=== PATIENT | female | born 1980 | race Caucasian/White ===

== ENCOUNTER 2019-02-19 10:54 | Emergency (ER) | payer OTHER ==
[2019-02-19] MEDS ORDERED: NA CHLORIDE 0.9% 1,000 ML ONE (12:18)
[2019-02-19] MEDS ORDERED: FOLIC ACID 5 MG/ML VIAL ONE (12:19)
--- NOTE | 2019-02-19 12:28 | RAD REPORT ---
EXAM DESCRIPTION: CT - Head Brain Wo Cont - 02/19/2019 12:17 pm CLINICAL HISTORY: Transient alteration of awareness COMPARISON: May 2016 TECHNIQUE: Axial 5 mm thick images of the head were obtained without IV contrast. All CT scans are performed using dose optimization technique as appropriate and may include automated exposure control or mA/KV adjustment according to patient size. FINDINGS: No intracranial hemorrhage, mass, edema or shift of mid-line structures. No acute infarcti on changes seen. No abnormal extra-axial fluid collections. Ventricles are normal. Mastoid air cells and visualized portions of the paranasal sinuses are clear. No acute bony findings. IMPRESSION: Negative non-contrast CT head examination for acute finding. No significant change from comparison
[2019-02-19 12:47] LABS: Absolute Lymphocytes (CBC) 2.2 K/uL (0.7-4.9); Absolute Monocytes 0.4 K/uL (0.1-1.3); Absolute Neutrophil 3.8 K/uL (1.8-8.0); Basophils % 0.5 % (0-1.3); Eosinophils % 0.7 % (0-4.4); Hematocrit 45.8 % (36.0-45.0); Lymphocytes % 33.6 % (15.3-44.8); Monocytes % 6.7 % (3.3-12.3); RBC Red Blood Cell Count 4.97 M/uL (3.86-4.86)
[2019-02-19 12:47] LABS: Urine Blood TRACE (NEG); Urine Glucose NEGATIVE (NEG); Urine Protein NEGATIVE (NEG); Urine Specific Gravity 1.015 (1.005-1.030); Urine pH 5.5 (5.0-7.0)
[2019-02-19 13:07] LABS: ALT/SGPT 30 U/L (12-78); AST/SGOT 15 U/L (15-37); Albumin 3.9 g/dL (3.4-5.0); Alkaline Phosphatase 80 U/L (45-117); BUN Blood Urea Nitrogen 10 mg/dL (7-18); Bicarbonate 26 mmol/L (21-32); Bilirubin Direct 0.1 mg/dL (0-0.2); Bilirubin Total 0.6 mg/dL (0.2-1.0); C-Reactive Protein 4.56 mg/L (<3.00); Glucose Level 92 mg/dL (74-106); Magnesium 2.4 mg/dL (1.8-2.4); NT PRO-BNP 86 pg/mL (<125); Potassium 4.1 mmol/L (3.5-5.1); Protein, Total 7.6 g/dL (6.4-8.2); Sodium Level 141 mmol/L (136-145); Troponin (Emerg Dept Use Only) < 0.02 ng/mL (0.0-0.045)
--- NOTE | 2019-02-19 13:25 | RAD REPORT ---
EXAM DESCRIPTION: RAD - Chest Single View - 02/19/2019 12:51 pm CLINICAL HISTORY: Cough COMPARISON: December 2017 TECHNIQUE: AP portable chest image was obtained 1238 hours . FINDINGS: Lungs are clear. Heart and vasculature are normal. No measurable pleural effusion and no p neumothorax. No acute bony abnormality seen. No acute aortic findings suspected. IMPRESSION: No acute cardiopulmonary process. No significant interval change.
--- NOTE | 2019-02-19 13:35 | EDPHYS ---
Physician Documentation [facility] Name: Юлия White Age: 38 yrs Sex: Female : 1980 Arrival Date: 02/19/2019 Time: 10:55 Bed 14 Private MD: ED Physician Mike Pinon HPI: 02/19 11:58 This 38 yrs old Female presents to ER via Ambulatory with complaints of jovanni Numbness Of Face, Diarrhea. 11:58 The patient's problem is reported as paresthesias, in right side of face, forehead. jovanni Onset: The symptoms/episode began/occurred 1 day(s) ago. Context:. The symptoms are alleviated by nothing. The symptoms are aggravated by nothing. Severity of symptoms: At their worst the symptoms were mild. Patient's baseline: Neuro:. Historical: - Allergies: 11:05 CEPHALOSPORINS; la1 11:05 Phenergan; la1 - PMHx: 11:05 neuropathy; la1 - PSHx: 11:05 back sx; la1 - Immunization history:: Adult Immunizations up to date. - Social history:: Smoking status: Patient/guardian denies using tobacco. - Ebola Screening: : No symptoms or risks identified at this time. - Family history:: not pertinent. ROS: 11:58 Constitutional: Negative for fever, chills, and weight loss, Eyes: Negative for injury, jovanni pain, redness, and discharge, ENT: Negative for injury, pain, and discharge, Neck: Negative for injury, pain, and swelling, Cardiovascular: Negative for chest pain, palpitations, and edema, Respiratory: Negative for shortness of breath, cough, wheezing, and pleuritic chest pain, Abdomen/GI: Negative for abdominal pain, nausea, vomiting, diarrhea, and constipation, Back: Negative for injury and pain, : Negative for injury, bleeding, discharge, and swelling, MS/Extremity: Negative for injury and deformity, Skin: Negative for injury, rash, and discoloration, Psych: Negative for depression, anxiety, suicide ideation, homicidal ideation, and hallucinations, Allergy/Immunology: Negative for hives, rash, and allergies, Endocrine: Negative for neck swelling, polydipsia, polyuria, polyphagia, and marked weight changes, Hematologic/Lymphatic: Negative for swollen nodes, abnormal bleeding, and unusual bruising. 11:58 Neuro: Positive for numbness, of the forehead, right cheek, right ear, right anabaptist and right jaw. Exam: 11:58 Constitutional: This is a well developed, well nourished patient who is awake, alert, jovanni and in no acute distress. Head/Face: Normocephalic, atraumatic. Eyes: Pupils equal round and reactive to light, extra-ocular motions intact. Lids and lashes normal. Conjunctiva and sclera are non-icteric and not injected. Cornea within normal limits. Periorbital areas with no swelling, redness, or edema. ENT: Nares patent. No nasal discharge, no septal abnormalities noted. Tympanic membranes are normal and external auditory canals are clear. Oropharynx with no redness, swelling, or masses, exudates, or evidence of obstruction, uvula midline. Mucous membranes moist. Neck: Trachea midline, no thyromegaly or masses palpated, and no cervical lymphadenopathy. Supple, full range of motion without nuchal rigidity, or vertebral point tenderness. No Meningismus. Chest/axilla: Normal chest wall appearance and motion. Nontender with no deformity. No lesions are appreciated. Cardiovascular: Regular rate and rhythm with a normal S1 and S2. No gallops, murmurs, or rubs. Normal PMI, no JVD. No pulse deficits. Respiratory: Lungs have equal breath sounds bilaterally, clear to auscultation and percussion. No rales, rhonchi or wheezes noted. No increased work of breathing, no retractions or nasal flaring. Abdomen/GI: Soft, non-tender, with normal bowel sounds. No distension or tympany. No guarding or rebound. No evidence of tenderness throughout. Back: No spinal tenderness. No costovertebral tenderness. Full range of motion. Female : Normal external genitalia. 12:01 Radiologist reports: see report jovanni Vital Signs: 11:09 Pulse 84; Resp 18; Pulse Ox 99% on R/A; Weight 73.94 kg; Height 5 ft. 7 in. (170.18 cm);la1 11:10 BP 127 / 82; la1 12:00 BP 125 / 74; Pulse 75; Resp 18; Pulse Ox 99% on R/A; em 13:38 BP 114 / 73; Pulse 68; Resp 18; Pulse Ox 99% on R/A; Pain 5/10; em 14:21 BP 110 / 67; Pulse 68; Resp 18; Pulse Ox 98% on R/A; em 11:09 Body Mass Index 25.53 (73.94 kg, 170.18 cm) la1 NIH Stroke Scale Scores: 12:11 NIHSS Score: 0 [facility] MDM: 11:29 Patient medically screened. [facility] 12:01 Data reviewed: vital signs, nurses notes, lab test result(s), EKG, radiologic studies, [facility] CT scan, plain films, ultrasound. 02/19 11:58 Order name: Basic Metabolic Panel; Complete Time: 13:21 [facility] 02/19 11:58 Order name: CBC with Diff [facility] 02/19 11:58 Order name: LFT's; Complete Time: 13:21 [facility] 02/19 11:58 Order name: Magnesium; Complete Time: 13:21 [facility] 02/19 11:58 Order name: NT PRO-BNP; Complete Time: 13:21 [facility] 02/19 11:58 Order name: PT-INR [facility] 02/19 11:58 Order name: Troponin (emerg Dept Use Only); Complete Time: 13:21 [facility] 02/19 11:58 Order name: XRAY Chest (1 view) [facility] 02/19 11:58 Order name: US Carotid Artery Bilateral [facility] 02/19 11:58 Order name: Sed Rate [facility] 02/19 11:58 Order name: CRP; Complete Time: 13:21 [facility] 02/19 11:58 Order name: Urine Culture [facility] 02/19 12:25 Order name: Urine Dipstick--Ancillary (enter results) [facility] 02/19 12:25 Order name: Urine --Ancillary (enter results) [facility] 02/19 11:58 Order name: Cardiac monitoring; Complete Time: 12:45 [facility] 02/19 11:58 Order name: EKG - Nurse/Tech; Complete Time: 12:45 [facility] 02/19 11:58 Order name: IV Saline Lock; Complete Time: 12:46 [facility] 02/19 11:58 Order name: Labs collected and sent; Complete Time: 12:46 [facility] 02/19 11:58 Order name: O2 Per Protocol; Complete Time: 12:46 [facility] 02/19 11:58 Order name: O2 Sat Monitoring; Complete Time: 12:45 [facility] 02/19 11:58 Order name: CT Head Brain wo Cont; Complete Time: 13:21 [facility] 02/19 11:58 Order name: Urine Dipstick-Ancillary (obtain specimen); Complete Time: 12:04 [facility] Administered Medications: 12:45 Drug: NS 0.9% 1000 ml Route: IV; Rate: 1 bolus; Site: left antecubital; em 14:00 Follow up: IV Status: Completed infusion; IV Intake: 1000ml em 12:45 Drug: foLIC Acid 1 mg Route: IVPB; Site: left antecubital; hb 13:00 Follow up: Response: No adverse reaction em 13:46 Drug: Aspirin Chewable Tablet 324 mg Route: PO; em 14:00 Follow up: Response: No adverse reaction em 13:46 Drug: Tylenol 650 mg Route: PO; em 14:00 Follow up: Response: No adverse reaction em Disposition: 02/19/19 13:34 Discharged to Home. Impression: Weakness. - Condition is Stable. - Discharge Instructions: Transient Ischemic Attack, Weakness, Transient Ischemic Attack, Hpyo-kf-Mhma, Weakness, Qyvd-pz-Bixp, Aspirin and Your Heart. - Prescriptions for Folic Acid 1 mg Oral Tablet - take 1 tablet by ORAL route once daily; 30 tablet. - Medication Reconciliation Form, Thank You Letter, Antibiotic Education, Prescription Opioid Use form. - Follow up: Private Physician; When: 2 - 3 days; Reason: Recheck today's complaints, Continuance of care, Re-evaluation by your physician. Follow up: Arthur Conteh MD; When: 1 - 2 days; Reason: Recheck today's complaints, Continuance of care, Re-evaluation by your physician. - Problem is new. - Symptoms have improved. NIH Stroke Scale - NIH Stroke Score Date: 02/19/2019 Time: 12:11 Total Score = 0 1a. Level of Consciousness (LOC) - 0(Alert) 1b. Level of Consciousness (LOC) (Year \T\ Age) - 0(Both) 1c. LOC Commands (Open \T\ Closes Eyes/Compressor Operator Portable) - 0(Both) 2. Best Gaze (Lateral Gaze Paresis) - 0(Normal) 3. Visual Field Loss - 0(No visual loss) 4. Facial Palsy - 0(Normal) 5a. Left Arm: Motor (10-second hold) - 0(No drift) 5b. Right Arm: Motor (10-second hold) - 0(No drift) 6a. Left Leg: Motor (5-second hold - always test supine) - 0(No drift) 6b. Right Leg: Motor (5-second hold - always test supine) - 0(No drift) 7. Limb Ataxia (finger/nose \T\ heel/lubin - test with eyes open) - 0(Absent) 8. Sensory Loss (pinprick arms/legs/face) - 0(Normal) 9. Best Language: Aphasia (description/naming/reading) - 0(No aphasia) 10. Dysarthria (speech clarity - read or repeat words) - 0(Normal) 11. Extinction and Inattention (visual/tactile/auditory/spatial/personal) - 0(No abnormality) Initials: [facility] Signatures: Dispatcher [employer] EDMike Faustin MD MD cha Munoz, Edgar, RECREATION AIDE RECREATION AIDE em Shan Melendez, RN RN la1 Susan Marr RN RN hb Corrections: (The following items were deleted from the chart) 14:26 13:34 02/19/2019 13:34 Discharged to Home. Impression: Weakness. Condition is em Stable. Discharge Instructions: Transient Ischemic Attack, Weakness, Transient Ischemic Attack, Hrvt-ro-Wdby, Weakness, Kzju-gd-Vjyh, Aspirin and Your Heart. Prescriptions for Folic Acid 1 mg Oral Tablet - take 1 tablet by ORAL route once daily; 30 tablet. and Forms are Medication Reconciliation Form, Thank You Letter, Antibiotic Education, Prescription Opioid Use. Follow up: Private Physician; When: 2 - 3 days; Reason: Recheck today's complaints, Continuance of care, Re-evaluation by your physician. Follow up: Arthur Conteh; When: 1 - 2 days; Reason: Recheck today's complaints, Continuance of care, Re-evaluation by your physician. Problem is new. Symptoms have improved. jovanni
--- NOTE | 2019-02-19 13:35 | ER ---
Nurse's Notes [facility] Name: Юлия White Age: 38 yrs Sex: Female : 1980 Arrival Date: 02/19/2019 Time: 10:55 Bed 14 Private MD: Diagnosis: Weakness Presentation: 02/19 11:05 Presenting complaint: Patient states: At about 11 am on 02/18/2019 I having numbness and la1 tingling in my whole face and confusion that is intermittently worse. Transition of care: patient was not received from another setting of care. Onset of symptoms was February 19, 2019. Risk Assessment: Do you want to hurt yourself or someone else? Patient reports no desire to harm self or others. Initial Sepsis Screen: Does the patient meet any 2 criteria? No. Patient's initial sepsis screen is negative. Does the patient have a suspected source of infection? No. Patient's initial sepsis screen is negative. Care prior to arrival: None. 11:05 Method Of Arrival: Ambulatory la1 11:05 Acuity: [place] 3 la1 11:10 Note VAN negative. la1 Historical: - Allergies: 11:05 CEPHALOSPORINS; la1 11:05 Phenergan; la1 - PMHx: 11:05 neuropathy; la1 - PSHx: 11:05 back sx; la1 - Immunization history:: Adult Immunizations up to date. - Social history:: Smoking status: Patient/guardian denies using tobacco. - Ebola Screening: : No symptoms or risks identified at this time. - Family history:: not pertinent. Screenin:10 VAN Screening: Arm Drift: Patient shows no arm weakness. Visual Disturbance: No visual la1 disturbance noted. Aphasia: No aphasia noted. Neglect: No neglect noted. 12:00 Abuse screen: Denies threats or abuse. Nutritional screening: No deficits noted. em Tuberculosis screening: No symptoms or risk factors identified. Fall Risk None identified. Assessment: 12:00 General: Appears in no apparent distress. comfortable, Behavior is calm, cooperative, em Denies fever. Pain: Pain: Complains of pain in abdomen and head. Neuro: Level of Consciousness is awake, alert, obeys commands, Oriented to person, place, time, situation, Apprentice Pattern Maker are equal bilaterally Moves all extremities. Gait is steady, Speech is normal, Facial symmetry appears normal, Pupils are PERRLA, Intact. Cardiovascular: Capillary refill < 3 seconds Patient's skin is warm and dry. Respiratory: Airway is patent Respiratory effort is even, unlabored, Respiratory pattern is regular, symmetrical, Breath sounds are clear bilaterally. Denies cough. GI: Abdomen is flat, Reports diarrhea, Patient currently denies nausea, vomiting. : No signs and/or symptoms were reported regarding the genitourinary system. EENT: No signs and/or symptoms were reported regarding the EENT system. Derm: Skin is intact, is healthy with good turgor, Skin is pink, warm \T\ dry. Musculoskeletal: Capillary refill < 3 seconds, Range of motion: intact in all extremities. 12:15 Reassessment: I agree with previous assessment. hb 13:30 Reassessment: Patient appears in no apparent distress at this time. Patient and/or em family updated on plan of care and expected duration. Pain level reassessed. Patient is alert, oriented x 3, equal unlabored respirations, skin warm/dry/pink. 13:50 Reassessment: request some Tylenol for headache, provider notified, new medication em orders received. 14:26 Reassessment: Patient appears in no apparent distress at this time. Patient and/or em family updated on plan of care and expected duration. Pain level reassessed. Patient is alert, oriented x 3, equal unlabored respirations, skin warm/dry/pink. Vital Signs: 11:09 Pulse 84; Resp 18; Pulse Ox 99% on R/A; Weight 73.94 kg; Height 5 ft. 7 in. (170.18 cm);la1 11:10 BP 127 / 82; la1 12:00 BP 125 / 74; Pulse 75; Resp 18; Pulse Ox 99% on R/A; em 13:38 BP 114 / 73; Pulse 68; Resp 18; Pulse Ox 99% on R/A; Pain 5/10; em 14:21 BP 110 / 67; Pulse 68; Resp 18; Pulse Ox 98% on R/A; em 11:09 Body Mass Index 25.53 (73.94 kg, 170.18 cm) la1 NIH Stroke Scale Scores: 12:11 NIHSS Score: 0 jovanni ED Course: 10:55 Patient arrived in ED. as 11:07 Triage completed. la1 11:07 Arm band placed on right wrist. la1 11:28 Zi, Mike, MD is Attending Physician. jovanni 11:30 Brent Glez LVN is Primary Nurse. em 12:00 Patient has correct armband on for positive identification. Bed in low position. Call em light in reach. Adult w/ patient. Pulse ox on. NIBP on. 12:17 CT Head Brain wo Cont In Process Unspecified. EDMS 12:45 Initial lab(s) drawn, by me, sent to lab. Inserted saline lock: 22 gauge in left em antecubital area, using aseptic technique. Blood collected. 12:51 XRAY Chest (1 view) In Process Unspecified. EDMS 13:32 US Carotid Artery Bilateral In Process Unspecified. EDMS 13:33 Ultrasound completed. Patient tolerated well. sg3 13:34 Arthur Conteh MD is Referral Physician. jovanni 14:25 No provider procedures requiring assistance completed. em 14:25 IV discontinued, intact, bleeding controlled, No redness/swelling at site. Pressure em dressing applied. Administered Medications: 12:45 Drug: NS 0.9% 1000 ml Route: IV; Rate: 1 bolus; Site: left antecubital; em 14:00 Follow up: IV Status: Completed infusion; IV Intake: 1000ml em 12:45 Drug: foLIC Acid 1 mg Route: IVPB; Site: left antecubital; hb 13:00 Follow up: Response: No adverse reaction em 13:46 Drug: Aspirin Chewable Tablet 324 mg Route: PO; em 14:00 Follow up: Response: No adverse reaction em 13:46 Drug: Tylenol 650 mg Route: PO; em 14:00 Follow up: Response: No adverse reaction em Intake: 14:00 IV: 1000ml; Total: 1000ml. em Outcome: 13:34 Discharge ordered by . jovanni 14:26 Discharged to home ambulatory, with family. em 14:26 Condition: good 14:26 Discharge instructions given to patient, family, Instructed on discharge instructions, follow up and referral plans. medication usage, Demonstrated understanding of instructions, follow-up care, medications, Prescriptions given X 1. 14:26 Patient left the ED. em NIH Stroke Scale - NIH Stroke Score Date: 02/19/2019 Time: 12:11 Total Score = 0 1a. Level of Consciousness (LOC) - 0(Alert) 1b. Level of Consciousness (LOC) (Year \T\ Age) - 0(Both) 1c. LOC Commands (Open \T\ Closes Eyes/Policy Checker) - 0(Both) 2. Best Gaze (Lateral Gaze Paresis) - 0(Normal) 3. Visual Field Loss - 0(No visual loss) 4. Facial Palsy - 0(Normal) 5a. Left Arm: Motor (10-second hold) - 0(No drift) 5b. Right Arm: Motor (10-second hold) - 0(No drift) 6a. Left Leg: Motor (5-second hold - always test supine) - 0(No drift) 6b. Right Leg: Motor (5-second hold - always test supine) - 0(No drift) 7. Limb Ataxia (finger/nose \T\ heel/lubin - test with eyes open) - 0(Absent) 8. Sensory Loss (pinprick arms/legs/face) - 0(Normal) 9. Best Language: Aphasia (description/naming/reading) - 0(No aphasia) 10. Dysarthria (speech clarity - read or repeat words) - 0(Normal) 11. Extinction and Inattention (visual/tactile/auditory/spatial/personal) - 0(No abnormality) Initials: jovanni Signatures: Dispatcher [employer] Mike Ventura MD MD cha Munoz, Edgar, RESTAURANT KITCHEN AND SERVICE MANAGER RESTAURANT KITCHEN AND SERVICE MANAGER Deloris Canales Lee RN RN la1 Susan Marr, RN RN Alyssa Li 3 Corrections: (The following items were deleted from the chart) 18:31 18:31 IV Status: Completed infusion; IV Intake: 1000ml em em
--- NOTE | 2019-02-19 13:37 | RAD REPORT ---
EXAM DESCRIPTION: US - CP - 02/19/2019 1:32 pm CLINICAL HISTORY: Syncope, transient alteration of awareness COMPARISON: None. TECHNIQUE: Real-time sonographic evaluation of both carotid systems was performed. Bobo scale and Do ppler interrogation were performed with waveform tracing bilaterally. FINDINGS: Normal high resistance waveforms are noted in both external carotid arteries. The common c arotid arteries and internal carotid arteries show normal low resistance waveforms. No significant plaque formation is seen. Peak systolic and end diastolic velocity values and the ICA/ CCA ratios are in the non-hemodynamically significant range. Antegrade flow seen in both vertebral arteries. Velocity values and ratios were recorded and are retained in the patient's imaging records. IMPRESSION: No significant atherosclerotic changes noted. No evidence of a hemodynamically significant stenosis.
[2019-02-19 13:38] LABS: Protime INR 0.95
[2019-02-19] MEDS ORDERED: ASPIRIN 81 MG CHEWABLE TABLET ONE (13:54)
[2019-02-19] MEDS ORDERED: ACETAMINOPHEN 325 MG TABLET ONE (13:54)
[2019-02-19 14:44] VITALS: BP 110/67; O2SAT 98
--- NOTE | 2019-02-22 11:40 | EKG ---
Test Date: 2019-02-19 Test Time: 12:34:17 Varnisher: SABRA MEASUREMENT RESULTS: Intervals: Rate: 69 NE: 130 QRSD: 86 QT: 382 QTc: 409 [place]: P: 67 NE: 130 QRS: 76 T: 56 INTERPRETIVE STATEMENTS: Normal sinus rhythm Possible Left atrial enlargement Borderline ECG Compared to ECG 12/23/2017 08:52:08 Short NE interval no longer present Electronically Signed On 02-21-19 10:53:50 CDT by Doron Spangler
== END 2019-02-19 14:26 | disposition home or self-care (01) ==
LOC: ER 10:54
DX: R53.1 Weakness (principal); Z88.3 Allergy status to other anti-infective agents; Z88.8 Allergy status to other drugs, medicaments and biological substances
CPT/HCPCS: 36415; 70450; 71045; 80048; 80076; 81003; 81025; 83735; 83880; 84484; 85025; 85610; 85652; 86140; 87086; 87088; 93005; 93880; 96361; 96374; 99284; J7030

== ENCOUNTER 2019-07-08 06:38 | Day surgery (SDC) | payer OTHER ==
[2019-07-07 17:14] LABS: Absolute Lymphocytes (CBC) 2.8 K/uL (0.7-4.9); Basophils % 0.4 % (0-1.3); Hematocrit 46.7 % (36.0-45.0); Lymphocytes % 39.6 % (15.3-44.8); MPV 8.2 fL (7.6-11.3); RBC Red Blood Cell Count 4.91 M/uL (3.86-4.86)
[2019-07-07 17:26] LABS: Potassium 3.9 mmol/L (3.5-5.1)
[2019-07-07 17:41] LABS: Albumin 3.9 g/dL (3.4-5.0); Bilirubin Direct 0.1 mg/dL (0-0.2); Bilirubin Total 0.6 mg/dL (0.2-1.0); Protein, Total 7.8 g/dL (6.4-8.2)
--- OUTSIDE RECORDS SUMMARY | 2019-07-08 06:41 | XMS REPORT ---
:1980 Author Organization [facility] Address [address] [place] [address] Dr. Hines [address] [place] [id number] Care Team Providers Name Role Phone Unavailable Unavailable Unavailable Problems This patient has no known problems. Allergies, Adverse Reactions, Alerts This patient has no known allergies or adverse reactions. Medications This patient has no known medications. Encounters Start End Encounter Admission Attending Care Care Encounter Date/Time Date/Time Type Type Clinicians Facility Department ID 2019-02-21 2019-02-21 Emergency E [id number] 11:51:00 11:51:00
[2019-07-08] MEDS ORDERED: Ringers Lactate 1,000 ML IV ONE (06:50)
[2019-07-08] MEDS ORDERED: CIPROFLOXACIN 400mg IV 400 MG/200 ML BAG IV ONE (06:51)
[2019-07-08] MEDS ORDERED: PROPOFOL 200 MG/20 ML VIAL IV ONE (07:12)
[2019-07-08] MEDS ORDERED: MIDAZOLAM HCL 2 MG/2 ML INJ ONE (07:12)
[2019-07-08] MEDS ORDERED: GLYCOPYRROLATE 0.2 MG/ML SYR ONE ×2 (07:12→07:13)
[2019-07-08] MEDS ORDERED: LIDOCAINE 2% MPF 5 ML VIAL ONE (07:13)
[2019-07-08] MEDS ORDERED: FENTANYL CITR 250 MCG/5 ML ONE (07:13)
[2019-07-08] MEDS ORDERED: NEOSTIGMINE 1 MG/ML -10 ML VIAL ONE (07:14)
[2019-07-08] MEDS ORDERED: ONDANSETRON 4 MG/2 ML VIAL ONE ×2 (07:14→09:28)
[2019-07-08] MEDS ORDERED: ROCURONIUM 50 MG/5 ML VIAL IV ONE (07:14)
[2019-07-08] MEDS ORDERED: SCOPOLAMINE HYDROBROMIDE PATCH TD ONE (07:23)
--- NOTE | 2019-07-08 08:33 | P.BOP ---
Preoperative diagnosis: biliary dyskinesia, RUQ abd pain Postoperative diagnosis: same Primary procedure: Laparoscopic cholecystectomy School Attendance Secretary: WESLEY MONTALVO (REVERBERATORY FURNACE OPERATOR) Estimated blood loss: <10cc Specimen: gb Findings: as above Anesthesia: General Complications: None Transferred to: Recovery Room Condition: Good
[2019-07-08] MEDS: HYDROMORPHONE HCL 1 MG/ML INJ ONE ×2 (09:09→09:16)
[2019-07-08] MEDS ORDERED: HYDROMORPHONE HCL 1 MG/ML INJ ONE (09:25)
--- NOTE | 2019-07-08 09:29 | OP ---
Date of Procedure: 07/08/2019 Surgeon: Parth Gonzalez MD Counter Caser: Raeann Hardin. Preoperative Diagnoses: Biliary dyskinesia, right upper quadrant abdominal pain, epigastric pain. Postoperative Diagnoses: Biliary dyskinesia, right upper quadrant abdominal pain, epigastric pain. Procedure: Laparoscopic cholecystectomy. Estimated Blood Loss: Less than 10 mL. Anesthesia: General plus local. Indications: This is a case of a 38-year-old patient, who comes to us with acute abdominal pain, kena gnosed with biliary dyskinesia, right upper quadrant pain. Fully explained the benefits, alternative s, and risks of laparoscopic, possible open cholecystectomy, which include, but are not limited to in fection, bleeding, damage to adjacent structures, anesthesia complication, common bile duct injury, l eak, pancreatitis, CO, and even . She also understands that this may not relieve any symptoms. She might need more than one surgical intervention. She understood, signed a consent. Description Of Procedure: Patient was brought to the operating room, placed in supine position. Ane sthesia was done without complication. Abdominal area was prepped and draped in a sterile fashion. Marcaine 0.5% was injected for local anesthetic, followed by sharp incision of the skin in the infrau mbilical region. The incision was carried down to fascia, which was opened under direct vision. The peritoneum was encountered, opened under direct vision. Vicryl #1 placed inside the fascia. David trocar was carefully introduced. No bleeding was obtained. I placed 3 more trocars, 5 mm each one of them, 1 in the epigastric area, 2 in the right upper quadrant using same technique, which consiste d of local anesthetic, sharp incision of the skin, and introduction of the trocars under direct visio n. This allowed me to put a grasper in the fundus of the gallbladder, another grasper in the infundi bulum, retracted the gallbladder in the inferolateral fashion exposing the triangle of Calot, and obt aining critical view of safety. Cystic duct and cystic artery were clearly isolated free circumferen tially and a connection between those and the gallbladder were clearly identified. I proceeded to li gate those by using at least 3 clips proximal, 1 clip distal, ligation in middle. Same was done with the cystic artery. No bile leak. No bleeding. The gallbladder was removed from liver using Bovie cauterizer and removed from abdominal cavity using an EndoCatch through the umbilical incision. The area was inspected once again. No bile leak. No bleeding. At that moment I proceeded to remove the trocars under direct vision, deflated the pneumoperitoneum, closed the umbilical area. Patient has a small umbilical hernia that was reduced, added into our incision, and repaired at the same time, th is was done with Vicryl #1. Irrigation was done on the subcutaneous tissue, and then closed with 3-0 chromic and the skin with 3-0 chromic in a subcuticular fashion with Steri-Strip on top. Sponge cou nt and instrument counts were correct. The patient tolerated the procedure well. Patient was sent t o recovery in stable condition. Disposition: Home. Activity: As tolerated. No heavy lifting. Followup: Follow up in my office in 1 week. Call for appointment at [phone]. Keep area dry for 48 hours, then may shower. Keep Steri-Strips intact. Medications: Include Tylenol No. 3 q.4 hours p.r.n. pain, Bactrim DS p.o. b.i.d. ABBE/YRN Voice ID: [id number] Report ID: [id number]
[2019-07-08 10:09] VITALS: TEMP 97.9; O2SAT 99
[2019-07-08] MEDS ORDERED: CODEINE 30MG/APAP 300MG TAB ONE (10:31)
[2019-07-08 12:57] VITALS: BP 127/6
== END 2019-07-08 12:30 | disposition home or self-care (01) ==
LOC: OR 06:38
PROVIDERS: ATTEND Surgery
PROC: 0FT44ZZ Resection of Gallbladder, Percutaneous Endoscopic Approach (ICD-10-PCS; principal; 2019-07-08 07:30)
DX: K82.8 Other specified diseases of gallbladder (principal); R10.11 Right upper quadrant pain; R10.13 Epigastric pain; Z88.1 Allergy status to other antibiotic agents; Z83.3 Family history of diabetes mellitus; Z82.49 Family history of ischemic heart disease and other diseases of the circulatory system
CPT/HCPCS: 85025; 80048; 36415; 82150; 84703; 80076; 88302; 88304; 83690; 47562; J2704; J2710; J2250; J3010; J1170 ×2; J2405 ×2; J0744

== ENCOUNTER 2024-12-15 20:49 | Inpatient (IN) | payer OTHER ==
[2024-12-15 21:51] VITALS: BMI 21.2
[2024-12-15] MEDS: VANCOMYCIN 1 GM in NA CHLORIDE 0.9% 250 ML IVPB SCH (22:00)
[2024-12-15] MEDS: Levofloxacin 750mg IV 750 MG/150 ML BAG IV SCH (22:00)
[2024-12-15] MEDS: NA CHLORIDE 0.9% 1,000 ML IV SCH (22:00)
--- NOTE | 2024-12-15 22:04 | P.HP ---
Certification for Inpatient Patient admitted to: Inpatient With expected LOS: >2 Midnights Practitioner: I am a practitioner with admitting privileges, knowledge of patient current condition, hospital course, and medical plan of care. Services: Services provided to patient in accordance with Admission requirements found in Title 42 Section 412.3 of the Code of Federal Regulations Patient History Date of Service: 12/15/24 Reason for admission: neck cellultis and salivary gland stones History of Present Illness: Patient is a 44-year-old female brought in as a direct admit from [facility]. She has a history of IBS-diarrhea complicated by recurrent hypoglycemia. Patient was seen at [facility] for persistent neck pain. She has been dealing with this issue for some time. She was seen on December 13 and was treated for anterior neck cellulitis. She was discharged on dexamethasone and levofloxacin but was not evaluated by ENT. She returned today to [facility] with persistent neck pain. CT maxillofacial showd mild fat stranding adjacent to the submandibular glands, no evidence of sialolithiaisis. CT neck showed bilateral sialadenitis fo natalee submandibular and parotid glands, along with diffuse cellulitis. Her WBC 15. She is being transferred here for ENT evaluation. Allergies Cephalosporins Allergy (Verified 07/07/19 16:21) Rash promethazine HCl [From Phenergan] Allergy (Verified 12/15/24 21:52) Rash Home Medications: Valacyclovir HCl [Valtrex] 500 mg PO DAILY 07/07/19 norethindrone-e.estradioL-iron [Tycuwx-Yp-Mf 1-0.02(21)-75 Tab] 1 each PO DAILY 07/07/19 Colestipol HCl [Colestid] 1 gm PO QID 12/15/24 Physical Examination - Physical Exam General: Moderate distress HEENT: Atraumatic, Normocephalic Neck: Other (R sided neck mass, tender to palpation) Respiratory: Clear to auscultation bilaterally, Normal air movement Cardiovascular: No edema, Normal pulses, Regular rate/rhythm, Normal S1 S2 Integumentary: Tenderness/swelling, Erythema, Warmth Neurological: Normal speech Assessment and Plan - Problems (Diagnosis) (1) Cellulitis of neck Current Visit: Yes Status: Acute (2) Salivary gland stone Current Visit: Yes Status: Acute - Plan Assessment Patient is a 44 year old female with known history of IBS-diarrhea and recently right sided neck cellultiis complicated by sialoadenitis. She failed outpatient treatment. She was treated reccently with dexamethosone and levofloxacin but her symptoms persisted. She was seen earlier today at [facility] where CT revealed bilateral sialadenitis and diffuse cellulitis. Neck cellulitis Bilateral sialadenitis of submandibular and parotid gland IBS-diarrhea Recurrent hypoglycemia PLAN: Admit inpatient for abx Start IV vancomycin and Levofloxacin ENT consulted MMP regimen NPO after midnight Change IV fluid to dextrose-based given high risk of hypoglycemia Full code - Advance Directives Does patient have a Living Will: No Does patient have a Durable POA for Healthcare: No
[2024-12-15] MEDS: D5 0.45 NS 1,000 ML IV SCH (22:49)
[2024-12-15] MEDS: VANCOMYCIN 1.25 GM in NA CHLORIDE 0.9% 250 ML IVPB ONE (22:50)
[2024-12-15] MEDS: HYDROMORPHONE HCL 1 MG/ML INJ IV PRN (23:02)
[2024-12-15] MEDS: Levofloxacin 750mg IV 750 MG/150 ML BAG IV ONE (23:32)
[2024-12-16 04:59] LABS: Absolute Lymphocytes (CBC) 0.9 K/uL (0.7-4.9); Absolute Monocytes 0.3 K/uL (0.1-1.3); Absolute Neutrophil 8.8 K/uL (1.8-8.0); Basophils % 0.4 % (0-1.3); Eosinophils % 0.1 % (0-4.4); Hematocrit 40.7 % (36.0-45.0); Hemoglobin 14.4 g/dL (12.0-15.0); Lymphocytes % 8.6 % (15.3-44.8); MCH 33.6 pg (27.0-35.0); MCHC 35.3 g/dL (32.0-36.0); MPV 8.1 fL (7.6-11.3); Monocytes % 2.7 % (3.3-12.3); Neutrophils % 88.2 % (41.7-73.7); Platelets 236 thou/uL (152-406); RBC Red Blood Cell Count 4.28 M/uL (3.86-4.86)
[2024-12-16 05:02] LABS: Anion Gap 14.4 mEq/L (5.0-15.0); Potassium 4.4 mEq/L (3.5-5.1)
[2024-12-16 05:30] LABS: Platelet Estimate ADEQ; White Blood Cell Scan OK (OK)
[2024-12-16 05:31] LABS: Blood Morphology Comment NOT SEEN (NOT SEEN)
--- NOTE | 2024-12-16 07:06 | P.PN ---
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 Patient direct admit from [facility] for ENT evaluation Seen on Dec 13, Failed outpatient therapy for neck cellulitis. Dc'd with Dexamethasone and Levaquin, clindamycin (per EMR) Symptoms persisted and she felt more swollen so she went back to ER. CT maxillofacial (12/15): mild fat stranding adjacent to the submandibular glands, no evidence of sialolithiaisis CT neck (12/15): bilateral sialadenitis of the submandibular and parotid glands, along with diffuse cellulitis Dr. Justin ENT consulted to eval Continue empiric levaquin / vanc (12/15-) confirm home meds, restart as appropriate pain control Recurrent hypoglycemia continue IV fluids with d5 Hx of Irritable bowel Syndrome continue colestipol Code: Full Dispo: Home Pending ENT recs Time Spent Managing Pts Care (In Minutes): 55
[2024-12-16] MEDS: VALACYCLOVIR 500 MG TAB PO SCH (07:59)
[2024-12-16] MEDS: NORETH EE FE PO SCH (08:05)
[2024-12-16] MEDS ORDERED: VALACYCLOVIR 500 MG TAB PO SCH (09:00)
[2024-12-16] MEDS: VANCOMYCIN 1.25 GM in NA CHLORIDE 0.9% 250 ML IVPB SCH (09:45)
[2024-12-16] MEDS: MORPHINE 4 MG/ML SYR IV PRN (09:46)
[2024-12-16] MEDS: COLESTIPOL 1 GM TAB PO SCH (09:47)
[2024-12-16] MEDS: ACETAMINOPHEN 500 MG TAB PO PRN (09:56)
--- NOTE | 2024-12-16 10:25 | P.CNS ---
Date of Consult: 12/16/24 I was notified by the floor regarding the consultation. The patient was admitted overnight for neck cellulitis and made n.p.o. by the primary service. Upon notification I advised to the nurse that I not on-call and that they should contact Dr. Justin for evaluation thank you
[2024-12-16] MEDS: levoFLOXacin 750 MG TAB PO SCH (20:51)
[2024-12-16] MEDS: ONDANSETRON 4 MG/2 ML VIAL IV PRN (23:06)
[2024-12-17 08:07] LABS: Absolute Basophils 0.1 K/uL (0-0.5); Absolute Eosinophils 0.1 K/uL (0-0.5); Absolute Lymphocytes (CBC) 3.6 K/uL (0.7-4.9); Absolute Monocytes 0.7 K/uL (0.1-1.3); Absolute Neutrophil 5.3 K/uL (1.8-8.0); Basophils % 0.6 % (0-1.3); Eosinophils % 0.6 % (0-4.4); Hematocrit 41.7 % (36.0-45.0); Hemoglobin 14.3 g/dL (12.0-15.0); Lymphocytes % 37.2 % (15.3-44.8); MCH 33.3 pg (27.0-35.0); MCHC 34.3 g/dL (32.0-36.0); MCV 96.9 fL (80-100); MPV 7.1 fL (7.6-11.3); Monocytes % 6.7 % (3.3-12.3); Neutrophils % 54.9 % (41.7-73.7); Nucleated Red Blood Cells % 0.1 % (0-0); Platelets 281 thou/uL (152-406); Red Cell Distribution Width 12.2 % (12.1-15.2)
[2024-12-17 08:30] LABS: Anion Gap 9.3 mEq/L (5.0-15.0); Magnesium 2.1 mg/dL (1.6-2.4); Potassium 4.3 mEq/L (3.5-5.1)
--- NOTE | 2024-12-17 08:57 | P.PN ---
Date of Service: 12/17/24 Subjective: feels slightly worse overall today more tired, weak today tingling pins and needles sensation continues; worse on right side slightly more tender on right side afebrile ROS: 10 point ROS as noted above, otherwise negative Physical Exam: GEN: Alert, oriented, NAD Neck: enlarged b/l submandibular glands, LAD - slightly decreased in size, slightly more tender CV: Regular rate and rhythm, no edema Pulm: Nonlabored respirations on room air, clear bilaterally Integumentary: No rashes Neuro: Normal speech, normal affect Problem List: Bilateral sialadenitis of submandibular and parotid gland with cellulitis Recurrent hypoglycemia Hx of Irritable bowel Syndrome - diarrhea hx of pineal cyst (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 Patient direct admit from [facility] for ENT evaluation Seen on Dec 13, Failed outpatient therapy for neck cellulitis. Dc'd with Dexamethasone and Levaquin, clindamycin (per EMR) Symptoms persisted and she felt more swollen so she went back to ER. CT maxillofacial (12/15): mild fat stranding adjacent to the submandibular glands, no evidence of sialolithiaisis CT neck (12/15): bilateral sialadenitis of the submandibular and parotid glands, along with diffuse cellulitis Dr. Justin ENT consulted Advance to regular diet; continue medical management Continue empiric levaquin / vanc (12/15-) pt with IBS-D / absorption issues, would benefit from IV for now, before transition to PO to ensure absorption / serum concentration may benefit from steroids pain control trend CRP swelling improved, tenderness increased continues with dry mouth - recommended sour hard candy Recurrent hypoglycemia continue IV fluids with d5 Hx of Irritable bowel Syndrome continue colestipol Code: Full Dispo: Home Pending improvement. Time Spent Managing Pts Care (In Minutes): 55
--- NOTE | 2024-12-17 11:02 | CON ---
Date of Consultation: 12/16/2024 Please see detailed history and physical exam. Impression: Acute bilateral submandibular gland sialoadenitis, improved with IV antibiotics. Plan: 1. Continue IV antibiotics as prescribed. 2. N.p.o. after midnight, but if improving on antibiotics, may restart regular diet in the morning, 0 12/17/2024 and may also restart regular diet today, 12/16/2024. 3. We will continue to monitor as needed for worsening or abscess development. KD/MODL Voice ID: [id number] Report ID: [id number]
[2024-12-17] MEDS: D5 0.45 NS 1,000 ML IV SCH (12:00)
[2024-12-17] MEDS: predniSONE 20 MG TAB PO SCH (12:17)
[2024-12-18 05:03] LABS: Absolute Basophils 0.1 K/uL (0-0.5); Absolute Eosinophils 0.1 K/uL (0-0.5); Absolute Lymphocytes (CBC) 3.5 K/uL (0.7-4.9); Absolute Monocytes 0.8 K/uL (0.1-1.3); Absolute Neutrophil 6.2 K/uL (1.8-8.0); Basophils % 0.6 % (0-1.3); Eosinophils % 0.5 % (0-4.4); Hematocrit 41.6 % (36.0-45.0); Hemoglobin 14.9 g/dL (12.0-15.0); Lymphocytes % 33.1 % (15.3-44.8); MCH 33.6 pg (27.0-35.0); MCHC 35.7 g/dL (32.0-36.0); MCV 94.2 fL (80-100); MPV 7.3 fL (7.6-11.3); Monocytes % 7.5 % (3.3-12.3); Neutrophils % 58.3 % (41.7-73.7); Nucleated Red Blood Cells % 0.1 % (0-0); Platelets 275 thou/uL (152-406); RBC Red Blood Cell Count 4.42 M/uL (3.86-4.86); Red Cell Distribution Width 11.7 % (12.1-15.2)
[2024-12-18 05:28] LABS: Anion Gap 6.1 mEq/L (5.0-15.0); C-Reactive Protein 15.5 mg/L (<3.00); Magnesium 2.4 mg/dL (1.6-2.4); Potassium 4.1 mEq/L (3.5-5.1)
[2024-12-18 08:36] VITALS: BP 110/56; TEMP 98
--- NOTE | 2024-12-18 08:59 | P.DS ---
Admission Date: 12/15/24 Discharge Date: 12/18/24 Disposition: ROUTINE DISCHARGE Discharge Condition: GOOD Reason for Admission: neck cellultis and salivary gland stones Consultations: ENT - Dr. Justin Brief History of Present Illness: 44-year-old female brought in as a direct admit from [facility]. She has a history of IBS-diarrhea complicated by recurrent hypoglycemia. Patient was seen at [facility] for persistent neck pain. She has been dealing with this issue for some time. She was seen on December 13 and was treated for anterior neck cellulitis. She was discharged on dexamethasone and levofloxacin but was not evaluated by ENT. She returned today to [facility] with persistent neck pain. CT maxillofacial showd mild fat stranding adjacent to the submandibular glands, no evidence of sialolithiaisis. CT neck showed bilateral sialadenitis fo natalee submandibular and parotid glands, along with diffuse cellulitis. Her WBC 15. She is being transferred here for ENT evaluation. 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 Admitted from [facility] for ENT evaluation. Patient was seen there on Dec 13, diagnosed with neck cellulitis and given prescriptions for Dexamethasone, Levaquin, clindamycin. She took these for ~2 days, and had worsening of her symptoms. She went back to [facility] where she underwent CT imaging noting mild fat stranding adjacent to the submandibular glands. CT neck noted bilateral sialadenitis of the submandibular and parotid glands, along with diffuse cellulitis. No evidence of abscess. Patient was evaluated by Dr. Justin (ENT) who recommended to continue with medical management with empiric antibiotics, steroids, pain control. No indications to warrant surgical intervention at this time. Patient was treated with empiric levaquin / vancomycin in addition to oral steroids while hospitalized and had improvement of her symptoms. She had significant and quick improvement within first 24hrs after receiving steroids at [facility] and antibiotics. She was continued on prednisone orally here. Suspect this is more auto-immune mediated given the quick improvement, however, given the extent of swelling she initially presented with, and risk of bacterial infection in patients with auto-immune disorders, will continue antibiotic alyssa atment. She does not have any risk for MRSA, and has tolerated penicillins/augment in the past. She is to complete 1 week of oral Augmentin on discharge in addition to oral prednisone taper. Patient was feeling better, neck pain and swelling improving, afebrile without leukocytosis, and was deemed stable for discharge. She was able to tolerate diet on day of discharge without issues. Advised patient to follow up with ENT within 2 weeks for further management, re- evaluation. Recommend following up with Endocrinology and Rheumatology in the near future for further work up. She reports last seeing Rheum back in ~2019. Medications: Augmentin x7 days Prednisone 20 mg for 5 days, then 10 mg for 5 more days Tylenol #3 10 pills as needed for pain Follow up: PCP 3-5 days ENT in 2 weeks Endocrinology and Rheumatology in the near future Please call to schedule / confirm appointments Physical Exam: GEN: Alert, oriented, NAD Neck: b/l submandibular glands decreased in size, +less tender CV: Regular rate and rhythm, no edema Pulm: Nonlabored respirations on room air, clear bilaterally Integumentary: No rashes Neuro: Normal speech, normal affect Vital Signs/Physical Exam: Temp Pulse Resp BP Pulse Ox 98.0 F 71 16 110/56 L 98 12/18/24 08:00 12/18/24 08:00 12/18/24 08:00 12/18/24 08:00 12/18/24 08:00 Laboratory Data at Discharge: WBC 10.70 thou/uL (4.3-10.9) 12/18/24 04:47 Hgb 14.9 g/dL (12.0-15.0) 12/18/24 04:47 Hct 41.6 % (36.0-45.0) 12/18/24 04:47 Plt Count 275 thou/uL (152-406) 12/18/24 04:47 Sodium 136 mEq/L (136-145) 12/18/24 04:47 Potassium 4.1 mEq/L (3.5-5.1) 12/18/24 04:47 BUN 12 mg/dL (7-18) 12/18/24 04:47 Creatinine 0.79 mg/dL (0.55-1.02) 12/18/24 04:47 Glucose 100 mg/dL (74-106) 12/18/24 04:47 Magnesium 2.4 mg/dL (1.6-2.4) 12/18/24 04:47 Triglycerides 98 mg/dL (<150) 12/16/24 04:14 Cholesterol 161 mg/dL (<200) 12/16/24 04:14 HDL Cholesterol 62 mg/dL (40-60) H 12/16/24 04:14 Cholesterol/HDL Ratio 2.60 12/16/24 04:14 Home Medications: Valacyclovir HCl [Valtrex] 500 mg PO DAILY 07/07/19 norethindrone-e.estradioL-iron [Pcxvvw-Ba-Gz 1-0.02(21)-75 Tab] 1 each PO DAILY 07/07/19 Colestipol HCl [Colestid] 1 gm PO QID 12/15/24 Amox/Clavulanate [Augmentin 875-125 Tab] 1 tab PO BID 7 Days #14 tab 12/18/24 Codeine/APAP [Tylenol W/Codeine #3 tab] 1 tab PO Q6HP PRN #10 tab 12/18/24 predniSONE [Deltasone*] 10 mg PO SEECOM 10 Days #15 tab 12/18/24 New Medications: Codeine/APAP [Tylenol W/Codeine #3 tab] 1 tab PO Q6HP PRN #10 tab PRN Reason: Pain Amox/Clavulanate [Augmentin 875-125 Tab] 1 tab PO BID 7 Days #14 tab predniSONE [Deltasone*] 10 mg PO SEECOM 10 Days #15 tab Physician Discharge Instructions: Physician discharge instructions: Patient presents with worsening neck pain, swelling. Admitted from [facility] for ENT evaluation. Patient was seen in ED Dec 13, diagnosed with neck cellulitis and given scripts for Dexamethasone, Levaquin, clindamycin. She failed outpatient therapy, states symptoms persisted and she felt her neck got more swollen so she went back to ER where she was found to have presumed bilateral sialadenitis of the submandibular and parotid glands. Reviewed prior CT reports done at [facility]. CT maxillofacial noted mild fat stranding adjacent to the submandibular glands, no evidence of sialolithiaisis. CT neck noted bilateral sialadenitis of the submandibular and parotid glands, along with diffuse cellulitis. Patient was evaluated by Dr. Justin (ENT) who recommended medical management with empiric antibiotics, steroids, pain control. No indications to warrant surgical intervention at this time. Patient was treated with empiric levaquin / vancomycin in addition to oral steroids while hospitalized and had improvement of her symptoms. Patient is to complete 1 week of oral Augmentin on discharge to cover possible bacterial infection in addition to oral prednisone taper. Patient was feeling better, neck pain and swelling improving, afebrile without leukocytosis, and was deemed stable for discharge. She was able to tolerate diet on day of discharge without issues. Advised patient to follow up with ENT within 2 weeks for further management, re- evaluation. Recommend following up with Endocrinology and Rheumatology in the near future for further work up. She reports last seeing Rheum back in ~2019. Medications: Augmentin x7 days Prednisode 20 mg for 5 days, then 10 mg for 5 more days Tylenol #3 10 pills as needed for pain Follow up: PCP 3-5 days ENT in 2 weeks Endocrinology and Rheumatology in the near future Please call to schedule / confirm appointments Patient hospitalized from 12/15-12/18. Okay to return to work remotely 12/19. Can return to work in office once antibiotics have completed. Followup: Fadi King, PAC [Primary Care Provider] - Time spent managing pt's care (in minutes): 45
[2024-12-18] MEDS: AMOX/K CLAV 875 MG TAB PO ONE (09:12)
--- NOTE | 2024-12-20 19:34 | CON ---
Date of Consultation: 12/17/2024 Additional Referring Physician: Dr. Danny Yoder. Chief Complaint: Upper neck pain and swelling. History Of Present Illness: The patient is a 44-year-old female, who was brought in as a direct admi t from [facility] on 12/15/2024. The patient has history of recurrent hypoglycemia and IBS diarrhea. She was seen at [facility] for persistent neck pain and she has had for several weeks that was worsening. She was seen initially on December 13, 2024, and was treated for anterior neck celluli tis at [facility] and then was discharged on dexamethasone and levofloxacin, but her condition worsened and she returned to [facility] with persistent neck pain and swelling. CT scan of maxillofacial struc tures and CT soft tissue neck showed mild fat stranding, bilateral submandibular and parotid gland si aloadenitis, but patent airway. She was transferred to ER for further evaluation. Upon arrival to bedside, the patient is in no acute distress and her voice is not muffled. She still reports mode rate to severe upper neck pain and swelling, but I found it to be very mild. She is able to tolerate solids and liquids, but is currently n.p.o. No other ENT complaints today. Past Medical History: Rheumatoid arthritis, IBS with diarrhea, recurrent hypoglycemia. Allergies: POSITIVE FOR CEPHALOSPORIN AND PROMETHAZINE HCL. Home Medications: Include valacyclovir, HCL, and colestipol HCL. Social History: Denies alcohol, tobacco, or illicit drugs. Review of Systems: Head: Negative for headache or trauma. General: Positive for fatigue, but negative for nausea, vomiting, fever/chills. Ears: Negative for hearing loss, otalgia, ear drainage. Nose: Negative for nasal congestion or rhinorrhea. Throat: Negative for difficulty swallowing. Positive for painful swallowing. Negative for airway o bstruction or sore throat. Neck: Positive for upper neck swelling, skin redness, and pain. Respiratory: Negative for dyspnea or chest pain. Physical Examination: Vital Signs: Stable. General: The patient is awake, alert, and oriented, in no acute distress. Head: Atraumatic, normocephalic. Eyes: PERRLA/EOMI. Ears: Deferred. Nose: Bilateral patent nasal cavities. Midline septum. Moist mucosa. Oral Cavity: Midline uvula. Oropharynx intact. No exudate or erythema. Neck: Moderate tenderness to palpation, bilateral submandibular glands, which are mildly swollen wit h no palpable abscesses. Moderate tenderness to palpation. Trachea is midline. No lymphadenopathy palpated. Imaging Data: CT scan of the neck and maxillofacial structures, I agree with Radiology that the fifi ent has bilateral sialadenitis of the submandibular and parotid glands, but no evidence of abscess an d no evidence of airway obstruction. Positive for diffuse bilateral cervical lymphadenopathy. Laboratory Studies: White blood cell count 15.6 on 12/15/2024. On 12/16/2024, white blood cell coun t trending downward to 10 and then 9.7 on December 17, 2024 and then slight elevation to 10.7 on 12/18. Diagnoses: 1. Acute bilateral submandibular sialoadenitis. 2. Bilateral parotid gland sialoadenitis. 3. History of rheumatoid arthritis and IBS with diarrhea. Recommendations: 1. Recommend medical management with IV levofloxacin and vancomycin due to absorption issues from IBS . No surgical management needed at this time. 2. We will be available if the patient's condition worsens. 3. Recommend outpatient oral antibiotics and follow up in 2 to 4 weeks, status post discharge or soon er if needed. KD/MODL Voice ID: [id number] Report ID: [id number]
== END 2024-12-18 12:15 | disposition home or self-care (01) | DRG 155 ==
LOC: 2ND 20:49
PROVIDERS: ADMIT Internal Medicine; ATTEND Hospitalist
DX: K11.21 Acute sialoadenitis (principal); L03.221 Cellulitis of neck; E16.2 Hypoglycemia, unspecified; K58.0 Irritable bowel syndrome with diarrhea; Z88.1 Allergy status to other antibiotic agents; Z79.52 Long term (current) use of systemic steroids; Z79.899 Other long term (current) drug therapy
CPT/HCPCS: 36415; 80048; 80061; 80202; 82947; 83735; 85025; 86140; J1171; J2405; J7050; J7512; J7799